=== PATIENT | male | born 1990 | race American Indian/Alaskan Native ===

== ENCOUNTER 2016-09-28 06:01 | Emergency (ER) | payer SELFPAY ==
[2016-09-28 07:04] LABS: Basophils % (Auto) 1.6 % (0.0-1.8); Eosinophils % (Auto) 0.8 % (0.0-4.3); Hemoglobin 15.3 gm/dl (11.8-15.2); Mean Corpuscular HGB Conc 33 % (32-34); Mean Corpuscular Hemoglobin 29 pg (28-32); Mean Corpuscular Volume 88 fl (84-94); Red Blood Count 5.35 M/mm3 (3.65-5.03); Red Cell Distribution Width 13.6 % (13.2-15.2); White Blood Count 6.4 K/mm3 (4.5-11.0)
[2016-09-28 07:11] LABS: Anion Gap 25 mmol/L; Blood Urea Nitrogen 4 mg/dL (9-20); Calcium 9.9 mg/dL (8.4-10.2); Carbon Dioxide 19 mmol/L (22-30); Glucose 117 mg/dL (75-100); Potassium 3.1 mmol/L (3.6-5.0); Sodium 143 mmol/L (137-145)
[2016-09-28 07:32] LABS: Platelet Count 364 K/mm3 (140-440)
[2016-09-28 07:34] LABS: Urine Drugs of Abuse Note Disclamer
--- NOTE | 2016-09-28 07:55 | Emergency Department Report ---
HPI - General Chief Complaint: Alcohol Time Seen by Provider: 09/28/16 07:40 - HPI HPI: 26-year-old male presents to EDts patient states he was out drinking at a bar with friends yesterday. Patient states he had a couple C short shots and some other drinks but cannot remember. Patient states he did not seasonal physically present in his strength. Patient states he feels different than normal drinking episodes. Patient states he feels his mouth is dry and he just feels different. Patient had no episodes of nausea or vomiting or blackout or fevers/chills/ chest pain/shortness of breath. Patient states he takes no other medications. Patient states she has a history of anxiety is not seen any doctor or takes any medication or ED Past Medical Hx - Past Medical History Previous Medical History?: Yes Hx Psychiatric Treatment: Yes (Anxiety) Additional medical history: Anxiety - Surgical History Past Surgical History?: No - Social History Smoking Status: Current Every Day Smoker Substance Use Type: Alcohol - Medications Home Medications: Home Medications Medication Instructions Recorded Confirmed Last Taken Type Cyclobenzaprine [Flexeril 10mg] 10 mg PO TID PRN #12 tablet 01/07/15 Unknown Rx traMADol [Ultram] 50 mg PO Q6HR PRN #16 tablet 01/07/15 Unknown Rx Ciprofloxacin HCl [Ciprofloxacin 500 mg PO Q12H #20 tab 03/15/15 Unknown Rx TAB] Acetaminophen [Tylenol] 500 mg PO Q6HR #30 tablet 09/28/16 Unknown Rx ED Review of Systems ROS: Stated complaint: DRUGS IN ALCOHOL Other details as noted in HPI Constitutional: denies: chills, fever, malaise, weakness Eyes: denies: eye pain, eye discharge, vision change ENT: denies: ear pain, throat pain Respiratory: denies: cough, shortness of breath, wheezing Cardiovascular: denies: chest pain, palpitations Endocrine: no symptoms reported. denies: flushing Gastrointestinal: denies: abdominal pain, nausea, vomiting, diarrhea Genitourinary: denies: urgency, dysuria, frequency, hematuria, discharge Musculoskeletal: denies: back pain, joint swelling, arthralgia Skin: denies: rash, lesions Neurological: denies: headache, weakness, numbness, paresthesias, confusion, abnormal gait Psychiatric: denies: anxiety, depression Hematological/Lymphatic: denies: easy bleeding, easy bruising, swollen glands Physical Exam - Physical Exam Vital Signs: Vital Signs 09/28/16 06:02 Temperature 98.3 F Pulse Rate 123 H Respiratory 20 Rate Blood Pressure 156/100 [Right] O2 Sat by Pulse 100 Oximetry Physical Exam: GENERAL: Alert and oriented x3, no apparent distress, Normal Gait, atraumatic. HEAD: Head is normocephalic and a-traumatic. EYES: Extra ocular muscles are intact. Pupils are equal, round, and reactive to light and accommodation. EARS: symetrical, atraumatic, non tender, ear canal clear and moderate cerumen, tympanic membrance non inflamed. gross auditory nml bilaterally. NOSE: Nose symetrical, Nontender,Nares appeared normal. MOUTH:Mouth is well hydrated and without lesions. Tonsils nonerythematous or swollen, Uvula midline, Tongue not elevated. Mucous membranes are moist. Posterior pharynx clear, no exudate or lesions. Patent airways. NECK: Supple. Non edematous, No carotid bruits. No lymphadenopathy or thyromegaly. LUNGS: Symetrical with respiration, No wheezing, no rales or crackles, CTAB. HEART: S1, S2 present, regular rate and rhythm without murmur, no rubs, no gallops. ABDOMEN: No organomegaly was noted,Positive bowel sounds, soft, and non- distended. . Nontender to palpation on all Quadrants, NO CVA tenderness. EXTREMITIES/MUSCULOSKELETAL: No cyanosis, clubbing, rash, lesions or edema. Full ROM bilaterally. UE/LE Pulses 2+ bilaterally. NEUROLOGIC: No focal Deficit, Cranial nerves II through XII are grossly intact. No loss of sensation, . PSYCHIATRIC: Mood is congruent with affect, denies suicidal or homicidal ideations. SKIN: Warm and dry, No lesions, No ulceration or induration present. ED Course Vital Signs 09/28/16 06:02 Temperature 98.3 F Pulse Rate 123 H Respiratory 20 Rate Blood Pressure 156/100 [Right] O2 Sat by Pulse 100 Oximetry ED Medical Decision Making - Lab Data Result diagrams: 09/28/16 06:35 09/28/16 06:35 - Medical Decision Making 26-year-old male presents after alcohol ingestion. ED course: Patient received 1 L normal saline fluids. She also received 1 dose of Flexeril Urinalyses show normal results. CBC within normal limits, BMP within normal limits. Alcohol toxicity within range 0.03. Urine drug screen presumptive positive for cocaine and amphetamine. Discussed findings with patient. Discussed follow-up with [facility] physician. Discussed with patient patient to increase fluid intake. Avoid high doses of alcohol. Discussed with patient to avoid substance abuse. Vital signs are stable patient is in no acute distress or respiratory distress Critical care attestation.: If time is entered above; I have spent that time in minutes in the direct care of this critically ill patient, excluding procedure time. ED Disposition Clinical Impression: Alcohol use Disposition: DISCHARGED TO HOME OR SELFCARE Is pt being admited?: No Does the pt Need Aspirin: No Condition: Stable Instructions: Abuse of Alcohol (ED), At-Risk Alcohol Use (ED) Prescriptions: Acetaminophen [Tylenol] 500 mg PO Q6HR #30 tablet Referrals: PRIMARY CARE, [Primary Care Provider] - 3-5 Days ROSI QUIROZ MD [Referring] - 3-5 Days BERONICA EID MD [Referring] - 3-5 Days [facility] [Outside] - 3-5 Days [facility] [Outside] - 3-5 Days [facility] [Outside] - 3-5 Days [facility] [Outside] - 3-5 Days Forms: Accompanied Note, Work/School Release Form(ED) Time of Disposition: 09:18
[2016-09-28 08:09] LABS: Bilirubin,Urine NEG (Negative); Blood,Urine NEG (Negative); Ketones,Urine NEG (Negative); Leukocyte Esterase,Urine NEG (Negative); Nitrite,Urine NEG (Negative); Protein,Urine <15 mg/dL mg/dL (Negative); Urobilinogen,Urine < 2.0 mg/dL (<2.0)
[2016-09-28] MEDS ORDERED: NACL 0.9% 1000 ML 1,000 ML IV ONE (08:22)
[2016-09-28 09:25] VITALS: BP 136/76
[2016-09-28] MEDS ORDERED: FLEXERIL PO ONE (10:03)
== END 2016-09-28 10:14 | disposition home or self-care (01) ==
LOC: ED 06:01
DX: F10.929 Alcohol use, unspecified with intoxication, unspecified (principal); F17.200 Nicotine dependence, unspecified, uncomplicated
CPT/HCPCS: 36415; 80048; 80307; 81001; 85025; 96360; 99283; G0480; J7030; 80320

== ENCOUNTER 2017-04-09 01:56 | Emergency (ER) | payer OTHER ==
[2017-04-09 04:47] LABS: Basophils % (Auto) 0.7 % (0.0-1.8); Hematocrit 44.6 % (35.5-45.6); Hemoglobin 14.4 gm/dl (11.8-15.2); Mean Corpuscular HGB Conc 32 % (32-34); Mean Corpuscular Hemoglobin 29 pg (28-32); Mean Corpuscular Volume 89 fl (84-94); Platelet Count 328 K/mm3 (140-440); Red Blood Count 4.99 M/mm3 (3.65-5.03); Red Cell Distribution Width 13.4 % (13.2-15.2); White Blood Count 12.9 K/mm3 (4.5-11.0)
[2017-04-09 05:10] LABS: Urine Drugs of Abuse Note Disclamer
[2017-04-09 05:19] LABS: Bacteria,Urine 1+ /HPF (Negative); Bilirubin,Urine NEG (Negative); Blood,Urine NEG (Negative); Ketones,Urine TR mg/dL (Negative); Leukocyte Esterase,Urine NEG (Negative); Mucus,Urine 1+ /HPF; Nitrite,Urine NEG (Negative)
[2017-04-09 05:20] LABS: Alanine Aminotransferase 31 units/L (7-56); Albumin/Globulin Ratio 1.8 %; Alkaline Phosphatase 73 units/L (35-129); Anion Gap 21 mmol/L; BUN/Creatinine Ratio 12; Blood Urea Nitrogen 19 mg/dL (9-20); Calcium 9.8 mg/dL (8.4-10.2); Carbon Dioxide 23 mmol/L (22-30); Chloride 100.9 mmol/L (98-107); Glucose 101 mg/dL (75-100); Potassium 3.8 mmol/L (3.6-5.0); Sodium 141 mmol/L (137-145); Total Protein 7.8 g/dL (6.3-8.2)
[2017-04-09] MEDS ORDERED: ATIVAN IM ONE (06:49)
[2017-04-09] MEDS ORDERED: HALDOL IM ONE (06:49)
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
--- NOTE | 2017-04-09 07:59 | Cat Scan Report ---
CT SCAN OF THE CERVICAL SPINE: HISTORY: Injury. TECHNIQUE: Contiguous 1.25 mm axial images of the cervical spine were obtained. Sagittal and coronal reformatted images. FINDINGS: There is normal alignment of the cervical spine. The body, pedicles and posterior ligaments appear normal. No evidence of fracture or subluxation is seen. The spinal canal appears normal. The prevertebral soft tissues appear normal. 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 IMPRESSION: Unremarkable CT of the cervical spine. No acute process is noted.
[2017-04-09] MEDS ORDERED: ATIVAN IM PRN (09:01)
--- NOTE | 2017-04-10 11:59 | Event Note ---
Date: 04/10/17 The patient is reexamined by myself. He is much more organized today. He is not homicidal or suicidal. He endorses that his hallucinations have stopped. He walks with a steady gait. He has a GCS of 15, and he has an NIH score of 0. His 1013 has been rescinded by myself. The patient is seen in consultation with Mrs. Guillory of the crisis team, who also independently agrees that the patient does not meet 1013 criteria, and he will be discharged at this time. Vital Signs 04/09/17 04/09/17 04/09/17 04:01 07:50 19:45 Temperature 98.7 F 98 F Pulse Rate 84 88 Respiratory 17 18 18 Rate Blood Pressure 125/74 Blood Pressure 127/70 [Left] O2 Sat by Pulse 99 100 Oximetry Lab Results 04/09/17 04/09/17 04/09/17 Range/Units 04:17 04:17 04:17 WBC 12.9 H (4.5-11.0) K/mm3 RBC 4.99 (3.65-5.03) M/mm3 Hgb 14.4 (11.8-15.2) gm/dl Hct 44.6 (35.5-45.6) % MCV 89 (84-94) fl MCH 29 (28-32) pg MCHC 32 (32-34) % RDW 13.4 (13.2-15.2) % Plt Count 328 (140-440) K/mm3 Lymph % (Auto) 20.3 (13.4-35.0) % [place] % (Auto) 6.8 (0.0-7.3) % Eos % (Auto) 1.0 (0.0-4.3) % Baso % (Auto) 0.7 (0.0-1.8) % Lymph # 2.6 (1.2-5.4) K/mm3 [place] # 0.9 H (0.0-0.8) K/mm3 Eos # 0.1 (0.0-0.4) K/mm3 Baso # 0.1 (0.0-0.1) K/mm3 Seg Neutrophils % 71.2 H (40.0-70.0) % Seg Neutrophils # 9.2 H (1.8-7.7) K/mm3 Sodium 141 (137-145) mmol/L Potassium 3.8 (3.6-5.0) mmol/L Chloride 100.9 (98-107) mmol/L Carbon Dioxide 23 (22-30) mmol/L Anion Gap 21 mmol/L BUN 19 (9-20) mg/dL Creatinine 1.6 H (0.8-1.5) mg/dL Estimated GFR > 60 ml/min BUN/Creatinine Ratio 12 % Glucose 101 H (75-100) mg/dL Calcium 9.8 (8.4-10.2) mg/dL Total Bilirubin 1.00 (0.1-1.2) mg/dL AST 34 (5-40) units/L ALT 31 (7-56) units/L Alkaline Phosphatase 73 (35-129) units/L Total Creatine Kinase (55-170) units/L Total Protein 7.8 (6.3-8.2) g/dL Albumin 5.0 (3.9-5) g/dL Albumin/Globulin Ratio 1.8 % Urine Color (Yellow) Urine Turbidity (Clear) Urine pH (5.0-7.0) Ur Specific [place] (1.003-1.030) Urine Protein (Negative) mg/dL Urine Glucose (UA) (Negative) mg/dL Urine Ketones (Negative) mg/dL Urine Blood (Negative) Urine Nitrite (Negative) Urine Bilirubin (Negative) Urine Urobilinogen (<2.0) mg/dL Ur Leukocyte Esterase (Negative) Urine WBC (Auto) (0.0-6.0) /HPF Urine RBC (Auto) (0.0-6.0) /HPF Urine Bacteria (Auto) (Negative) /HPF Calcium Oxalate Crystal Urine Mucus /HPF Salicylates (2.8-20.0) mg/dL Urine Opiates Screen Urine Methadone Screen Acetaminophen (10.0-30.0) ug/mL Ur Barbiturates Screen Ur Phencyclidine Scrn Ur Amphetamines Screen U Benzodiazepines Scrn Urine Cocaine Screen U Marijuana (THC) Screen Drugs of Abuse Note Plasma/Serum Alcohol < 0.01 (0-0.07) gm% 04/09/17 04/09/17 04/09/17 Range/Units 04:17 04:17 04:17 WBC (4.5-11.0) K/mm3 RBC (3.65-5.03) M/mm3 Hgb (11.8-15.2) gm/dl Hct (35.5-45.6) % MCV (84-94) fl MCH (28-32) pg MCHC (32-34) % RDW (13.2-15.2) % Plt Count (140-440) K/mm3 Lymph % (Auto) (13.4-35.0) % [place] % (Auto) (0.0-7.3) % Eos % (Auto) (0.0-4.3) % Baso % (Auto) (0.0-1.8) % Lymph # (1.2-5.4) K/mm3 [place] # (0.0-0.8) K/mm3 Eos # (0.0-0.4) K/mm3 Baso # (0.0-0.1) K/mm3 Seg Neutrophils % (40.0-70.0) % Seg Neutrophils # (1.8-7.7) K/mm3 Sodium (137-145) mmol/L Potassium (3.6-5.0) mmol/L Chloride (98-107) mmol/L Carbon Dioxide (22-30) mmol/L Anion Gap mmol/L BUN (9-20) mg/dL Creatinine (0.8-1.5) mg/dL Estimated GFR ml/min BUN/Creatinine Ratio % Glucose (75-100) mg/dL Calcium (8.4-10.2) mg/dL Total Bilirubin (0.1-1.2) mg/dL AST (5-40) units/L ALT (7-56) units/L Alkaline Phosphatase (35-129) units/L Total Creatine Kinase 627 H (55-170) units/L Total Protein (6.3-8.2) g/dL Albumin (3.9-5) g/dL Albumin/Globulin Ratio % Urine Color (Yellow) Urine Turbidity (Clear) Urine pH (5.0-7.0) Ur Specific [place] (1.003-1.030) Urine Protein (Negative) mg/dL Urine Glucose (UA) (Negative) mg/dL Urine Ketones (Negative) mg/dL Urine Blood (Negative) Urine Nitrite (Negative) Urine Bilirubin (Negative) Urine Urobilinogen (<2.0) mg/dL Ur Leukocyte Esterase (Negative) Urine WBC (Auto) (0.0-6.0) /HPF Urine RBC (Auto) (0.0-6.0) /HPF Urine Bacteria (Auto) (Negative) /HPF Calcium Oxalate Crystal Urine Mucus /HPF Salicylates < 0.3 L (2.8-20.0) mg/dL Urine Opiates Screen Urine Methadone Screen Acetaminophen < 15.0 (10.0-30.0) ug/mL Ur Barbiturates Screen Ur Phencyclidine Scrn Ur Amphetamines Screen U Benzodiazepines Scrn Urine Cocaine Screen U Marijuana (THC) Screen Drugs of Abuse Note Plasma/Serum Alcohol (0-0.07) gm% 04/09/17 04/09/17 Range/Units Unknown Unknown WBC (4.5-11.0) K/mm3 RBC (3.65-5.03) M/mm3 Hgb (11.8-15.2) gm/dl Hct (35.5-45.6) % MCV (84-94) fl MCH (28-32) pg MCHC (32-34) % RDW (13.2-15.2) % Plt Count (140-440) K/mm3 Lymph % (Auto) (13.4-35.0) % [place] % (Auto) (0.0-7.3) % Eos % (Auto) (0.0-4.3) % Baso % (Auto) (0.0-1.8) % Lymph # (1.2-5.4) K/mm3 [place] # (0.0-0.8) K/mm3 Eos # (0.0-0.4) K/mm3 Baso # (0.0-0.1) K/mm3 Seg Neutrophils % (40.0-70.0) % Seg Neutrophils # (1.8-7.7) K/mm3 Sodium (137-145) mmol/L Potassium (3.6-5.0) mmol/L Chloride (98-107) mmol/L Carbon Dioxide (22-30) mmol/L Anion Gap mmol/L BUN (9-20) mg/dL Creatinine (0.8-1.5) mg/dL Estimated GFR ml/min BUN/Creatinine Ratio % Glucose (75-100) mg/dL Calcium (8.4-10.2) mg/dL Total Bilirubin (0.1-1.2) mg/dL AST (5-40) units/L ALT (7-56) units/L Alkaline Phosphatase (35-129) units/L Total Creatine Kinase (55-170) units/L Total Protein (6.3-8.2) g/dL Albumin (3.9-5) g/dL Albumin/Globulin Ratio % Urine Color Yellow (Yellow) Urine Turbidity Clear (Clear) Urine pH 5.0 (5.0-7.0) Ur Specific [place] 1.029 (1.003-1.030) Urine Protein 30 mg/dl (Negative) mg/dL Urine Glucose (UA) Neg (Negative) mg/dL Urine Ketones Tr (Negative) mg/dL Urine Blood Neg (Negative) Urine Nitrite Neg (Negative) Urine Bilirubin Neg (Negative) Urine Urobilinogen 2.0 (<2.0) mg/dL Ur Leukocyte Esterase Neg (Negative) Urine WBC (Auto) 2.0 (0.0-6.0) /HPF Urine RBC (Auto) 2.0 (0.0-6.0) /HPF Urine Bacteria (Auto) 1+ (Negative) /HPF Calcium Oxalate Crystal 2+ Urine Mucus 1+ /HPF Salicylates (2.8-20.0) mg/dL Urine Opiates Screen Presumptive negative Urine Methadone Screen Presumptive negative Acetaminophen (10.0-30.0) ug/mL Ur Barbiturates Screen Presumptive negative Ur Phencyclidine Scrn Presumptive negative Ur Amphetamines Screen Presumptive positive U Benzodiazepines Scrn Presumptive positive Urine Cocaine Screen Presumptive positive U Marijuana (THC) Screen Presumptive negative Drugs of Abuse Note Disclamer Plasma/Serum Alcohol (0-0.07) gm%
[2017-04-10 12:12] VITALS: BP 113/68
== END 2017-04-10 12:43 | disposition home or self-care (01) ==
LOC: ED 01:56 → EEVIPCON 01:56 → ED 04-10 12:43
DX: F41.9 Anxiety disorder, unspecified (principal); F17.210 Nicotine dependence, cigarettes, uncomplicated
CPT/HCPCS: 36415; 70450; 72125; 80053; 80307; 81001; 82550; 85025; 96372; 99284; G0480; J1630; J2060; 80320

== ENCOUNTER 2020-01-03 17:31 | Emergency (ER) | payer SELFPAY ==
[2020-01-03 22:24] VITALS: BP 129/93
== END 2020-01-03 19:14 | disposition left against medical advice (07) ==
LOC: ED 17:31
DX: R50.9 Fever, unspecified (principal); Z53.21 Procedure and treatment not carried out due to patient leaving prior to being seen by health care provider